=== PATIENT | female | born 1995 | race Caucasian/White ===

== ENCOUNTER 2017-01-15 19:57 | Emergency (ER) | payer OTHER ==
[~2017-01-15] VITALS: Ht 170.2 cm; Wt 70.5 kg
[2017-01-15 20:08] VITALS: BP 127/70; TEMP 98.9
[2017-01-15] MEDS ORDERED: SRONYX 0.02 MG-1 TAB PO (20:12)
[2017-01-15] MEDS ORDERED: NORCO 325 MG-7.1 TAB PO (20:12)
[2017-01-15 21:22] LABS: PH 7 (5-8); URINE APPEARANCE Hazy; URINE BACTERIA Occasional /hpf; URINE BILIRUBIN Negative (NEGATIVE); URINE BLOOD Negative (NEGATIVE); URINE COLOR Yellow; URINE GLUCOSE Negative (NEGATIVE); URINE KETONE Negative (NEGATIVE); URINE RBC 0-2 /hpf; URINE UROBILINOGEN Negative (NEGATIVE)
[2017-01-15 22:13] VITALS: PULSE 89
== END 2017-01-15 22:15 | disposition home or self-care (01) ==
LOC: COL.ER 19:57 → EDBD 20:17 → COL.ER 20:17
PROVIDERS: Emergency Medicine
DX: K56.41 Fecal impaction (principal); Z98.890 Other specified postprocedural states

== ENCOUNTER → 2017-01-25 | Outpatient (CLI) | payer OTHER ==
[~2017-01-25] MED LIST: NORCO 325 MG-7.1 TAB PO; SRONYX 0.02 MG-1 TAB PO
== END ==
LOC: COL.VAS 13:15
DX: M79.604 Pain in right leg (principal); Z98.890 Other specified postprocedural states

== ENCOUNTER → 2019-07-29 | Outpatient (CLI) | payer OTHER | LOC: COL.RAD 14:34 | DX: M54.6 Pain in thoracic spine (principal) ==